=== PATIENT | female | born 1945 ===

== ENCOUNTER → 2024-01-06 07:19 | Outpatient (REF) | payer BC, SELFPAY | LOC: RAD 07:19 | PROVIDERS: ATTENDING PHYSICIAN Nurse Practitioner Adult Health | DX: Z78.0 Asymptomatic menopausal state (principal) | CPT/HCPCS: 77080 ==

== ENCOUNTER → 2024-05-20 08:25 | Outpatient (REF) | payer BC, SELFPAY | LOC: RCS 08:25 | PROVIDERS: ATTENDING PHYSICIAN Nurse Practitioner Adult Health | DX: R00.2 Palpitations (principal) | CPT/HCPCS: 93225; 93226 ==